=== PATIENT | female | born 1975 | race Caucasian/White ===

== ENCOUNTER 2020-05-30 10:52 | Emergency (ER) | payer MEDICAID, OTHER ==
[~2020-05-30] VITALS: Ht 160 cm; Wt 59.1 kg
[~2020-05-30 10:52] MED LIST: PHEN-786 PO
--- NOTE | 2020-05-30 11:29 | NUR ---
PT WAS DRIVING WHEN SHE STARTED HAVING THE MUSCLE SPASUMS AND GETTING SHORT OF BREATH ABOUT 5 DAYS AGO. SAYS SHE GETS SHORT OF BREATH WHEN SHE HAS THE MUSCLE SPASUMS AND THAT HAPPENS WHEN SHE MOVES AROUND AND THEY DECREASE WHEN RESTING BUT DOES NOT GO AWAY COMPLETLY.
[2020-05-30 12:51] LABS: BASOPHILS # (AUTO) 0.1 X10'3 (0-0.2); BASOPHILS % (AUTO) 0.7 % (0-1); EOSINOPHILS # (AUTO) 0.1 X10'3 (0-0.9); EOSINOPHILS % (AUTO) 0.5 % (0-6); HEMATOCRIT 33.9 % (35.0-45.0); HEMOGLOBIN 11.2 g/dl (12.0-16.0); LYMPHOCYTES # (AUTO) 1.9 X10'3 (1.1-4.8); LYMPHOCYTES % (AUTO) 11.7 % (21-51); MEAN CORPUSCULAR HEMOGLOBIN 27.3 PG (27.0-31.0); MEAN CORPUSCULAR VOLUME 82.6 FL (78-98); MEAN PLATELET VOLUME 6.6 FL (7.4-10.4); MONOCYTES % (AUTO) 6.5 % (2-12); NEUTROPHILS # (AUTO) 12.9 X10'3 (1.8-7.7); NEUTROPHILS % (AUTO) 80.6 % (42-75); PLATELET COUNT 540 X10'3 (140-440); WHITE BLOOD COUNT 16.1 X10'3 (4.5-11.0)
[2020-05-30 13:01] LABS: ALANINE AMINOTRANSFERASE 19 U/L (12-78); ALBUMIN 2.7 G/DL (3.4-5.0); ALBUMIN/GLOBULIN RATIO 0.5 (1.1-1.5); ALKALINE PHOSPHATASE 127 IU/L (46-116); ANION GAP 6 (8-16); ASPARTATE AMINO TRANSFERASE 16 U/L (10-37); BILIRUBIN,TOTAL 0.4 MG/DL (0.1-1.0); BLOOD UREA NITROGEN 10 MG/DL (7-18); BUN/CREATININE RATIO 15.4 (6.6-38.0); CALCIUM 8.8 MG/DL (8.5-10.1); CHLORIDE 97 MMOL/L (99-107); CREATININE 0.65 MG/DL (0.40-0.90); GLUCOSE 88 MG/DL (70-104); POTASSIUM 3.8 MMOL/L (3.5-5.1); SODIUM 132 MMOL/L (135-145); TOTAL CARBON DIOXIDE 29.4 MMOL/L (24-32); TOTAL PROTEIN 8.5 G/DL (6.4-8.2); eGFR > 90 ML/MIN
[2020-05-30] MEDS ORDERED: CefTRIAXone/D5W-Rocephin 1gm 50 ML IV ONE (13:15)
[2020-05-30] MEDS ORDERED: vancomycin/NS 1 GM ADD-VANTAGE 250 ML IV ONE (13:30)
[2020-05-30] MEDS ORDERED: iohexol 300mg/ml 100ml inj. ONE (13:52)
[2020-05-30 14:48] VITALS: BP 129/83
[2020-05-30] MEDS ORDERED: normal saline 1000ml 1,000 ML IV SCH (15:01)
[2020-05-30] MEDS ORDERED: mag hydrox/Alum hydrox/simeth 30ml oral suspension PO PRN (15:05)
[2020-05-30] MEDS ORDERED: magnesium hydroxide 30ml (MOM) UD suspension PO PRN (15:05)
[2020-05-30] MEDS ORDERED: acetaminophen 325mg tablet PO PRN ×2 (15:05)
[2020-05-30] MEDS ORDERED: acetaminophen 650mg rectal suppository RC PRN (15:05)
[2020-05-30] MEDS ORDERED: magnesium 2GM in 50ml NS 50 ML IV PRN (15:05)
[2020-05-30] MEDS ORDERED: ondansetron/PF 4mg/2ml inj IV PRN (15:05)
[2020-05-30] MEDS ORDERED: potassium CL 10mEq/100ml bag 100 ML IV PRN ×2 (15:05)
[2020-05-30] MEDS ORDERED: magnesium Cl slow-release 64mg tablet PO PRN (15:05)
[2020-05-30] MEDS ORDERED: HYDROcodone/acetaminophen 5mg/325mg tablet PO PRN (15:05)
[2020-05-30] MEDS ORDERED: HYDROcodone/acetaminophen 10/325mg tab PO PRN (15:05)
[2020-05-30] MEDS ORDERED: magnesium 4gm in 100ml NS 100 ML IV PRN (15:05)
[2020-05-30] MEDS ORDERED: potassium Cl 20 mEq SR tablet PO PRN ×2 (15:05)
[2020-05-30] MEDS ORDERED: METH-603 PO (15:23)
[2020-05-30 15:24] LABS: HEMOGLOBIN A1C 6.4 % (4.5-6.2)
[2020-05-30 15:31] LABS: C-REACTIVE PROTEIN 9.73 MG/DL (0.0-0.5)
[2020-05-30] MEDS ORDERED: CEPH-572 PO (16:25)
[2020-05-30] MEDS ORDERED: K and/or MAG REPLACEMENT MC SCH (20:00)
[2020-05-30] MEDS ORDERED: temazepam 15mg capsule PO PRN (21:00)
[2020-05-31] MEDS ORDERED: VANCOMYCIN 750MG IV in NS 250 ML IV SCH (03:00)
[2020-05-31] MEDS ORDERED: CefTRIAXone/D5W-Rocephin 1gm 50 ML IV SCH (08:00)
[2020-05-31] MEDS ORDERED: enoxaparin 40mg/0.4ml syringe SQ SCH (08:00)
[2020-06-01] MEDS ORDERED: VANCOMYCIN LEVEL IV ONE (14:30)
[2020-06-07] MEDS ORDERED: ESCI10TA PO (11:40)
[2020-06-07] MEDS ORDERED: DOL10T PO (11:44)
== END 2020-05-30 16:32 | disposition left against medical advice (07) ==
LOC: ER 10:52 → UNDOADMIN 15:01 → ED HOLD 15:01 → UNDODISIN 16:33
PROC: BW241ZZ Computerized Tomography (CT Scan) of Chest and Abdomen using Low Osmolar Contrast (ICD-10-PCS; principal; 2020-05-30)
DX: M00.812 Arthritis due to other bacteria, left shoulder (principal); M00.822 Arthritis due to other bacteria, left elbow; B96.89 Other specified bacterial agents as the cause of diseases classified elsewhere; F11.90 Opioid use, unspecified, uncomplicated; Z53.29 Procedure and treatment not carried out because of patient's decision for other reasons; F15.90 Other stimulant use, unspecified, uncomplicated; Z91.040 Latex allergy status
CPT/HCPCS: 36415; 71045; 71260; 80053; 83036; 83605; 83880; 84145; 84443; 84484; 85025; 85651; 86140; 87040; 87077; 87186; 93005; 96365; 96367; 99285; J0696; J3370; Q9967; 99284; G0378